=== PATIENT | female | born 1970 | race Caucasian/White ===

== ENCOUNTER 2018-01-15 05:58 | Emergency (ER) | payer OTHER ==
--- NOTE | 2018-01-15 08:26 | RAD ---
CHEST TWO VIEWS: History: Cough, rib pain. Comparison: None. FINDINGS: Normal cardiac silhouette. The pulmonary vessels and hilum are normal. No masses or consolidation. No pneumothorax or osseous abnormalities. IMPRESSION: No acute cardiopulmonary process. POS: ROXANNAH
--- NOTE | 2018-01-15 08:30 | RAD ---
LEFT RIBS 3 VIEWS: HISTORY: Pain in the anterior left 3rd rib. FINDINGS: No fracture. No cortical irregularity or periosteal reaction. IMPRESSION: No fracture. POS: ROXANNA
== END 2018-01-15 07:18 | disposition home or self-care (01) ==
LOC: SCSER 05:58
DX: I10 Essential (primary) hypertension (principal); R07.81 Pleurodynia; R05 Cough; J45.909 Unspecified asthma, uncomplicated; G47.00 Insomnia, unspecified; E78.5 Hyperlipidemia, unspecified; F41.9 Anxiety disorder, unspecified; F32.9 Major depressive disorder, single episode, unspecified; Z79.899 Other long term (current) drug therapy
CPT/HCPCS: 71046

== ENCOUNTER 2018-02-07 15:33 | Outpatient (CLI) | payer OTHER | END 2018-02-07 15:34 | disposition home or self-care (01) | LOC: BICMAMMO 15:33 | PROVIDERS: ATTEND Obstetrics & Gynecology | DX: Z12.31 Encounter for screening mammogram for malignant neoplasm of breast (principal) | CPT/HCPCS: 77063; 77067 ==

== ENCOUNTER 2018-02-14 15:04 | Emergency (ER) | payer OTHER ==
[2018-02-14 15:36] LABS: Bilirubin Negative (Negative); Blood, Urine Negative (Negative); Clarity CLOUDY (Clear); Glucose, Urine (Dipstick) Negative (Negative); Leukocyte Negative (Negative); Nitrite Negative (Negative); Protein, Urine (Dipstick) Negative (Neg-Trace); Specific Gravity, Urine 1.019 (1.002-1.036); Urobilinogen 0.2 mg/dL (0.2-1.0); pH, Urine 6.5 (5.0-9.0)
[2018-02-14 15:54] LABS: Hemoglobin 13.9 g/dL (12.0-16.0); Mean Corpuscular HGB CONC 33.6 g/dL (32.0-36.0); Mean Corpuscular Hemoglobin 30.1 pg (27.0-31.0); Mean Corpuscular Volume 89.7 fL (78.0-98.0); Mean Platelet Volume 8.4 fL (7.4-10.4); Platelet Count 230 thou/uL (130-400); RBC Distribution Width 11.3 % (11.5-14.5); Red Blood Cell (RBC) Count 4.62 mill/uL (4.20-5.40); White Blood Cell (WBC) Count 4.6 thou/uL (4.8-10.8)
[2018-02-14 16:01] LABS: ALT (SGPT) 26 U/L (8-55); AST (SGOT) 25 U/L (5-34); Albumin 4.2 g/dL (3.5-5.0); Alkaline Phosphatase 88 U/L (40-150); Anion Gap 15 mmol/L (10-20); BUN (Urea Nitrogen) 23 mg/dL (7.0-18.7); Bilirubin, Total 0.2 mg/dL (0.2-1.2); Calc. Creatinine Clearance 0 mL/min (70-130); Calcium 9.8 mg/dL (7.8-10.44); Carbon Dioxide 27 mmol/L (22-29); Chloride 105 mmol/L (98-107); Estimated GFR-MDRD 58; Globulin 3.3 g/dL (2.4-3.5); Glucose 100 mg/dL (70-105); Potassium 3.7 mmol/L (3.5-5.1); Protein, Total 7.5 g/dL (6.0-8.3); Sodium 143 mmol/L (136-145)
[2018-02-14 16:17] LABS: Band 1 % (5-11); Lymphocytes 87 % (21-51); MDiff Complete? YES; Monocytes 3 % (0-10); Neutrophil 9 % (42-75); PLT Morphology Comment Appears Adequate
[2018-02-14] MEDS ORDERED: Ondansetron PF 4 MG/2 ML Vial ONE (17:17)
[2018-02-14] MEDS ORDERED: Ketorolac Tromethamine 30 MG/ML VIAL ONE (17:17)
[2018-02-14] MEDS ORDERED: Morphine 4 MG/ML VIAL ONE (18:19)
--- NOTE | 2018-02-14 20:08 | CT ---
CT ABDOMEN AND PELVIS 02/14/18 PROVIDED CLINICAL HISTORY: Right flank pain. FINDINGS: The visualized lung bases are free of significant opacity. There is right hydronephrosis and right hydroureter to the level of a 2 to 3 mm right UVJ calculus. N o additional urinary tract calculi are evident. Circumscribed hypodense foci within each kidney stati stically reflects cysts that are incompletely characterized in the absence of IV contrast. The solid abdominal organs demonstrate an otherwise unremarkable unenhanced CT appearance with limitations due to lack of IV contrast. There is no bowel dilatation, free fluid or free air apparent. The appendix appears normal. The osseous structures demonstrate no concerning lytic or blastic lesions. IMPRESSION: 2-3 mm obstructing right UVJ calculus. POS: ASMITA
== END 2018-02-14 20:38 | disposition home or self-care (01) ==
LOC: ERS 15:04
DX: N13.2 Hydronephrosis with renal and ureteral calculous obstruction (principal); I10 Essential (primary) hypertension; J45.909 Unspecified asthma, uncomplicated; G47.00 Insomnia, unspecified; I25.10 Atherosclerotic heart disease of native coronary artery without angina pectoris; E78.5 Hyperlipidemia, unspecified; F41.9 Anxiety disorder, unspecified; F32.9 Major depressive disorder, single episode, unspecified; Z79.899 Other long term (current) drug therapy
CPT/HCPCS: 36415; 74176; 80053; 81003; 85025; 87077; 87086; 96374; 96375; J1885; J2270; J2405

== ENCOUNTER 2018-03-14 09:44 | Outpatient (CLI) | payer OTHER ==
--- NOTE | 2018-03-14 11:50 | ULT ---
RIGHT BREAST ULTRASOUND: Date: 03/14/18 HISTORY: 7.0 mm well circumscribed nodular density upper outer right breast noted on mammogram. FINDINGS: Real-time imaging of the area of concern, 6.0 cm from the nipple, at approximately the 10 o'clock pos ition, reveals two small cysts in this area, measuring in the 3-4 mm range. No suspicious masses are noted. I am not certain given the slight difference in size that either these definitely represent th e mammographic finding, but given the fact that the mammographic finding has a benign appearance, if it does not represent one of these two small cysts, it may just represent a lymph node. I think adequ ate follow-up would be a yearly follow-up mammogram. IMPRESSION: BI-RADS Category 2 - Benign findings. Annual follow-up mammogram is recommended for reassessment of the nodular density. POS: OFF
== END 2018-03-14 09:45 | disposition home or self-care (01) ==
LOC: BICMAMMO 09:44
PROVIDERS: ATTEND Obstetrics & Gynecology
DX: N63.11 Unspecified lump in the right breast, upper outer quadrant (principal)
CPT/HCPCS: G0279

== ENCOUNTER 2020-06-18 11:34 | Outpatient (CLI) | payer OTHER ==
[2020-06-18 13:07] LABS: #Eosinphils 0.1 10x3/uL (0.0-0.5); #Monocytes 0.3 10x3/uL (0.0-1.1); #Neutrophils 2.9 10x3/uL (1.5-8.4); %Basophils 0.8 % (0.0-2.0); %Lymphocytes 34.4 % (18.0-47.0); %Monocytes 6.2 % (0.0-10.0); %Neutrophils 57.4 % (40.0-75.0); Hemoglobin 15.7 g/dL (12.0-15.5); Mean Corpuscular HGB CONC 32.5 g/dL (32.0-36.0); Mean Corpuscular Volume 89.1 fl (81.6-98.3); Mean Platelet Volume 10.8 fl (7.4-10.4); Platelet Count 254 10x3/uL (150-450); RBC Distribution Width 12.1 % (11.5-14.5); Red Blood Cell (RBC) Count 5.42 10x6/uL (3.90-5.03)
[2020-06-18 13:20] LABS: ALT (SGPT) 48 U/L (8-55); AST (SGOT) 31 U/L (5-34); Albumin 4.6 g/dL (3.5-5.0); Alkaline Phosphatase 99 U/L (40-110); Anion Gap 15 mmol/L (10-20); BUN (Urea Nitrogen) 14 mg/dL (7.0-18.7); Bilirubin, Direct 0.1 mg/dL (0.1-0.3); Bilirubin, Total 0.2 mg/dL (0.2-1.2); Calc. Creatinine Clearance 0 mL/min (70-130); Calcium 10.3 mg/dL (7.8-10.44); Carbon Dioxide 28 mmol/L (22-29); Chloride 103 mmol/L (98-107); Glucose 88 mg/dL (70-105); Protein, Total 7.9 g/dL (6.0-8.3); Sodium 142 mmol/L (136-145)
[2020-06-19 03:27] LABS: SARS-CoV-2 PCR by NAA Not Detected (NotDetected)
== END 2020-06-18 11:35 | disposition home or self-care (01) ==
LOC: LABBT 11:34
PROVIDERS: ATTEND Obstetrics & Gynecology
DX: Z01.812 Encounter for preprocedural laboratory examination (principal); Z20.822 Contact with and (suspected) exposure to COVID-19
CPT/HCPCS: 80048; 80076; 85025; 87635; U0003; U0005

== ENCOUNTER 2020-06-22 08:00 | Day surgery (SDC) | payer OTHER ==
[2020-06-21 15:07] VITALS: BMI 31.3
[2020-06-22] MEDS ORDERED: Bupivacaine 0.25% HCL 30 ML VIAL ONE (12:57)
[2020-06-22] MEDS ORDERED: Lidocaine 1% w/Epinephrine 1:100K 20 ML VIAL ONE (12:57)
[2020-06-22] MEDS ORDERED: Fentanyl 100 MCG/2 ML VIAL ONE ×3 (13:06→15:10)
[2020-06-22] MEDS ORDERED: Dexamethasone 20 MG/5 ML VIAL ONE (13:15)
[2020-06-22] MEDS ORDERED: PROPOFOL 200 MG/20 ML VIAL ONE (13:15)
[2020-06-22] MEDS ORDERED: Meperidine HCl/PF 25 MG/ML VIAL ONE (13:15)
[2020-06-22] MEDS ORDERED: Glycopyrrolate 0.2 MG/ML 5 ML SYRINGE ONE (13:15)
[2020-06-22] MEDS ORDERED: Rocuronium Bromide 10 MG/ML (10ML VIAL) ONE (13:15)
[2020-06-22] MEDS ORDERED: Ondansetron PF 4 MG/2 ML Vial ONE (13:15)
[2020-06-22] MEDS ORDERED: SUGAMMADEX SODIUM 200 MG/2 ML VIAL ONE (14:00)
[2020-06-22] MEDS ORDERED: HYDROcodone/Acetaminophen 5/325 mg Tablet ONE (16:17)
== END 2020-06-22 17:11 | disposition home or self-care (01) ==
LOC: SDC 08:00
PROVIDERS: ATTEND Surgery
PROC: 0FT44ZZ Resection of Gallbladder, Percutaneous Endoscopic Approach (ICD-10-PCS; principal; 2020-06-22)
DX: K81.1 Chronic cholecystitis (principal); K82.8 Other specified diseases of gallbladder; I10 Essential (primary) hypertension; Z79.82 Long term (current) use of aspirin; Z79.899 Other long term (current) drug therapy; Z88.5 Allergy status to narcotic agent
CPT/HCPCS: 88304; J0690; J1100; J2175; J2405; J2704; J3010; S0020